=== PATIENT | female | born 1955 | race Caucasian/White ===

== ENCOUNTER 2022-08-04 09:00 | Outpatient (RCR) | payer MEDICARE, SELFPAY | END 2022-08-04 09:54 | disposition home or self-care (01) | LOC: HO.PT 09:00 | PROVIDERS: PCP Physician Assistant; Visit Provider Obstetrics & Gynecology | DX: N32.81 Overactive bladder (principal) | CPT/HCPCS: 97110; 97112; 97140; 97161 ==